=== PATIENT | male | born 2005 | race Two or more races ===

== ENCOUNTER 2024-12-27 01:59 | Emergency (ER) | payer MEDICAID, OTHER ==
[~2024-12-27] VITALS: Ht 182.9 cm; Wt 81.9 kg
[2024-12-27 02:00] VITALS: BP 139/83; PULSE 111; RESP 16; TEMP 98.9; O2SAT 97
--- NOTE | 2024-12-27 03:49 | ED.PDOC ---
History of Present Illness HPI Comments 19 y/o M presents with friend for c/c right had bite wound, with associated pain and swelling. Patient reports being bitten by his dog by accident when attempting to break a fight between his dog and another dog. Vaccination status of animal is unknown. Tetanus shot status is unknown. Denies any further acute symptoms. Chief Complaint: Animal Bite Time Seen by MD: 03:30 Information Source: Patient Mode of Arrival: Ambulatory Past Medical History PAST MEDICAL HISTORY: Denies Surgical History: Denies all surgeries Family History Family History: Unknown Social History Smoker: Non-Smoker Alcohol: Denies ETOH Use Drugs: Denies Drug Use Lives In: Home All Other Systems: Reviewed and Negative (as per HPI) Physical Exam General Appearance: No Apparent Distress, Normal HEENT: Normal ENT Inspection, Pharynx Normal, TMs Normal Neck: Full Range of Motion, Non-Tender, Normal, Normal Inspection Respiratory: Chest Non-Tender, Lungs Clear, No Accessory Muscle Use, No Respiratory Distress, Normal Breath Sounds Cardiovascular: No Edema, No JVD, No Murmur, No Gallop, Normal Peripheral Pulses, Regular Rate/Rhythm Breast Exam: Deferred Gastrointestinal: No Organomegaly, Non Tender, No Pulsatile Mass, Normal Bowel Sounds, Soft Genitalia: Deferred Pelvic: Deferred Rectal: Deferred Extremities: No calf tenderness, Normal capillary refill, Normal range of motion, Non-tender, No pedal edema, Other (On palmar side of right hand, there is 2x heavy 0.5cm puncture rob with no active bleeding or visible tendons at proximal 3rd and 4th phalanges; On dorsum side of right hand, superificial abrasions with swelling to 3rd and 4th knuckles. ) Musculoskeletal : Apperance: Normal Neurologic: Alert, founding partner II-XII nml as Tested, No Motor Deficits, Normal Affect, Normal Mood, No Sensory Deficits Cerebellar Function: Normal Reflexes: Normal Skin: Dry, Normal Color, Warm, Wounds (On palmar side of right hand, there is 2x heavy 0.5cm puncture rob with no active bleeding or visible tendons at proximal 3rd and 4th phalanges; On dorsum side of right hand, superificial abrasions with swelling to 3rd and 4th knuckles. ) Lymphatic: No Adenopathy Was a procedure done? Was a procedure done?: No Differential Dx Considerations may include: puncture wounds, retained foreign body, fractures, neurovascular injuries, among others X-Ray, Labs, Meds, VS Vital Signs Date Time Temp Pulse Resp B/P (MAP) Pulse Ox O2 Delivery O2 Flow Rate FiO2 12/27/24 02:00 98.9 111 16 139/83 97 98.9 Time of 1ST Reevaluation: 04:00 Reevaluation 1ST: Unchanged Patient Education/Counseling: Diagnosis, Treatment, Need For Follow Up Family Education/Counseling: No Family Present Additional Information Previous visits: N/A The following tests were ordered, and results were reviewed by me: right hand X- ray Additional Information was gathered from interviewing the following independent historians: N/A I reviewed and agreed with the following test results read by other providers: right hand X-ray I discussed treatment and results with medical personnel and: patient SEPSIS Sepsis Screen Date sepsis recognized/suspect: Dec 27, 2024 Time Sepsis recognized/suspect: 204 Recent Procedure: No On Antibiotic Therapy: No Respiratory Rate >20: No Heart Rate >90: Yes Temp<36 C (96.8 F) or >38.3 C: No SBP <90 or MAP <65 mmHG: No New Acute Mental Status Change: No Is the patient on CPAP, BIPAP,: No Physician Orders R Hand 3 View Xray (12/27/24 03:33) Clean Wound With: (12/27/24 03:33) Vital Signs Date Time Temp Pulse Resp B/P (MAP) Pulse Ox O2 Delivery O2 Flow Rate FiO2 12/27/24 02:00 98.9 111 16 139/83 97 98.9 Departure 1 Departure Time of Disposition: 04:37 Impression: Primary Impression: Dog bite Qualified Codes: W54.0XXA - Bitten by dog, initial encounter Disposition: HOME / SELF CARE / HOMELESS Condition: Good Additional Instructions: Return here or to your primary doctors for wound check in 48 hours. If there is any signs of infection, worsening of pain, increasing swelling, redness, fever or any concerns immediately return for recheck completely finish your antibiotic as prescribed e-Prescriptions Ibuprofen Micronized (MOTRIN TABLET) 600 Mg Tb 600 MG PO TID PRN, #40 TAB *Black box warning-NSAIDS can increase risk of GA & hypertension, GI irritation, ulceration, bleed, perferation. Do not use post cardiac surgery. Use short duration/lowest effective dose. Prov: DESTINEE RIVERA MD 12/27/24 Amoxicillin & Pot Clavulanate (AUGMENTIN TABLET) 875 Mg Tb 875 MG PO BID for 7 Days, #14 TAB Prov: DESTINEE RIVERA MD 12/27/24 Discharged With: Self, Relative Critical Care Note Critical Care Time?: No Stability Stability form required: No Heart Score Heart Score: Heart Score Response (Comments) Value History N/A 0 EKG N/A 0 Age N/A 0 Risk Factors N/A 0 Troponin N/A 0 Total 0 I personally scribed for DESTINEE RIVERA MD ([email or web address]) on 12/27/24 at 03:49. Electronically submitted by Sumit Oconnell ([email or web address]). DESTINEE RIVERA MD Dec 27, 2024 03:49
--- NOTE | 2024-12-27 04:10 | DVH ---
CLINICAL INDICATION: dog bite TECHNIQUE: XY R HAND 3 VIEW XRAY Comparison: None FINDINGS/IMPRESSION: : There is no evidence of acute fracture or dislocation. Moderate soft tissue swelling noted between the 2nd and 3rd digits includes scattered subcutaneous em physema. Soft tissues are otherwise unremarkable.
[2024-12-27] MEDS ORDERED: IBU600T PO (04:38)
[2024-12-27] MEDS ORDERED: AUG875T PO (04:38)
[2024-12-27] MEDS: AMOXICILLIN/CLAVUL 875 MG TAB PO ONE (04:39)
[2024-12-27] MEDS: HYDROcodone-ACET 5/325MG TAB PO ONE (04:40)
[2024-12-27] MEDS: TETANUS-DIPTH-ACEL PERTUSSIS 0.5ML SYR Tdap IM ONE (04:41)
== END 2024-12-27 05:00 | disposition home or self-care (01) ==
LOC: ER 01:59
DX: S61.451A Open bite of right hand, initial encounter (principal); T79.7XXA Traumatic subcutaneous emphysema, initial encounter; W54.0XXA Bitten by dog, initial encounter; Y93.89 Activity, other specified; Y92.89 Other specified places as the place of occurrence of the external cause; Y99.8 Other external cause status
CPT/HCPCS: 73130; 90471; 90715; 96372